=== PATIENT | female | born 1965 | race Caucasian/White ===

== ENCOUNTER → 2018-08-30 | Day surgery (SDC) | payer BC ==
[~2018-08-30] MED LIST: FENTANYL CITRATE/PF 100MCG/2 ML INJ ONE; GLUCAGON FOR INJ 1 MG VIAL ONE; HYOSCYAMINE SULFATE 0.5 MG/ML INJ ONE; MIDAZOLAM HCL 2 MG/2 ML VIAL ONE; PANTOPRAZOLE SO40 MG PO; PROPOFOL IV EMULSION 10 MG/ML 50 ML VIAL ONE; [UNRECOGNIZED DRUG - OTHER] PO
[2018-08-30 15:00] VITALS: BP 117/84
--- NOTE | 2018-08-30 15:12 | Operative Report ---
DATE OF PROCEDURE: August 30, 2018 REFERRING PHYSICIAN: Dr. Janna Tamayo PROCEDURES PERFORMED 1. Esophagogastroduodenoscopy with biopsies. 2. Colonoscopy with polypectomy and biopsies. INDICATIONS FOR EGD: Acid reflux and nausea. INDICATIONS FOR COLONOSCOPY: Colorectal cancer screening and history of diarrhea. MEDICATION: Patient was done under MAC. Please see anesthesiologist's note. PROCEDURE: With the patient in the left lateral decubitus position, the flexible fiberoptic Olympus gastroscope was introduced into the esophagus under direct visualization without any difficulty. There was some patchy erythema noted in the distal esophagus. The scope was then advanced with ease into the stomach traversing a small sliding hiatal hernia. Mucosa overlying the antrum and the body revealed some patchy erythema and mild to moderate edema, and biopsies were obtained and sent to stain for H. pylori. Approximately, 1.2 cm submucosal nodule was noted in the proximal antrum along with the posterior wall that was extensively biopsied. Pylorus was of normal contour and shape. It was intubated with ease. The scope was advanced all the way to the 2nd portion of the duodenum. Biopsies were obtained from the proximal 2nd portion and the duodenal bulb to rule out sprue. The scope was then withdrawn back into the stomach and retroflexed. The mucosa overlying the fundus and the cardia appeared to be within normal limits. The scope was then straightened out. The stomach was decompressed. The scope was subsequently withdrawn. Patient tolerated the procedure well. IMPRESSION 1. Mild distal esophagitis. 2. Small sliding hiatal hernia. 3. Gastritis, biopsied. Biopsies sent to stain for Helicobacter pylori. 4. Approximately, 1.2 cm submucosal nodule in proximal antrum, posterior wall, extensively biopsied. 5. Rule out sprue. PLAN: Follow up histology. Initiate Protonix 40 mg 1 p.o. q.a.m. a.c. Patient was then turned around. After adequate lubrication of the anal canal, a flexible fiberoptic Olympus colonoscope was inserted into the rectum with ease and advanced all the way to the cecum. Prep overall suboptimal to poor with moderate amount of retained fecal material. The ileocecal valve was intubated with ease. The scope was advanced into the terminal ileum. Biopsies were obtained. The scope was then withdrawn back into the colon. It was then withdrawn slowly. Whatever was visualized of the mucosa overlying the ascending and the transverse revealed some patchy areas of erythema. Mild inflammatory changes were noted in the areas visualized in the left colon. Random biopsies were obtained. Diverticular disease was noted in the distal descending and the sigmoid colon. One polyp was hot biopsied from the sigmoid colon. The scope was then retroflexed into the distal rectum. The area around the dentate line appeared to be within normal limits. The scope was then straightened out. It was subsequently withdrawn after securing an adequate stool specimen that was sent for the appropriate stool studies. Patient tolerated the procedure well. IMPRESSION 1. Poor prep. 2. Mild patchy left-sided colitis. 3. Diverticulosis. 4. Sigmoid colon polyp, hot biopsied. PLAN: Follow up histology. Follow up stool studies. Patient will need a repeat colonoscopy after a better prep. Job#: [id number] RI cc: JANNA TAMAYO MD
[2018-08-30 15:16] LABS: WBC,FECAL (FECAL LACTOFERRIN) POSITIVE (NEGATIVE)
[2018-08-31 14:59] LABS: C DIFFICILE TOXIN A&B AMP PROB NEGATIVE (NEGATIVE)
== END | disposition home or self-care (01) ==
LOC: OR 09:16
PROVIDERS: ATTEND Internal Medicine Gastroenterology
DX: Z12.11 Encounter for screening for malignant neoplasm of colon (principal); K63.5 Polyp of colon; K29.50 Unspecified chronic gastritis without bleeding; K51.50 Left sided colitis without complications; K29.80 Duodenitis without bleeding; K21.9 Gastro-esophageal reflux disease without esophagitis; K59.09 Other constipation; B96.81 Helicobacter pylori [H. pylori] as the cause of diseases classified elsewhere; K63.89 Other specified diseases of intestine; K20.9 Esophagitis, unspecified; K44.9 Diaphragmatic hernia without obstruction or gangrene; K31.89 Other diseases of stomach and duodenum; Z90.49 Acquired absence of other specified parts of digestive tract; K57.30 Diverticulosis of large intestine without perforation or abscess without bleeding; G70.00 Myasthenia gravis without (acute) exacerbation; I45.10 Unspecified right bundle-branch block; Z01.810 Encounter for preprocedural cardiovascular examination; Z97.5 Presence of (intrauterine) contraceptive device
CPT/HCPCS: 43239; 45380; 45384; 83630; 83993; 87045; 87177; 87328; 87493; 93005; J1610; J1980; J2250; 45378

== ENCOUNTER → 2018-09-18 | Outpatient (CLI) | payer BC, OTHER ==
[~2018-09-18] MED LIST changes: +DIATRIZOATE MEGL/DIATRIZOA SOD 30 ML BTL PO ONE; -FENTANYL CITRATE/PF 100MCG/2 ML INJ ONE; -GLUCAGON FOR INJ 1 MG VIAL ONE; -HYOSCYAMINE SULFATE 0.5 MG/ML INJ ONE; +IOPAMIDOL 370 MG/ML 200 ML INFUS..BTL INJ ONE; -MIDAZOLAM HCL 2 MG/2 ML VIAL ONE; -PROPOFOL IV EMULSION 10 MG/ML 50 ML VIAL ONE; +SODIUM CHLORIDE 0.9% 50ML 50 ML ONE
--- NOTE | 2018-09-18 17:16 | Diagnostic Imaging Report ---
EXAM: CT Abdomen and Pelvis WITH contrast INDICATION: Constipation/diarrhea COMPARISON: None. TECHNIQUE: Abdomen and Pelvis was scanned utilizing a multidetector helical scanner after administration of IV contrast. Coronal and sagittal reformations were obtained. IV CONTRAST: 100 mL Isovue 320 COMPLICATIONS: None RADIATION DOSE: Total DLP:239 mGy*cm Estimated effective dose: (DLP x 0.015 x size factor) mSv CTDIvol has been reviewed. It is below the limits set by the Radiation Protocol Committee (RPC). Appropriate CT dose reduction techniques were utilized. FINDINGS: Abdomen: Lung Bases: Atelectasis. Breast implants partially visualized. Solid Organs: Focal fat along falciform ligament. Cholecystectomy clips. Liver, adrenals, kidneys, spleen, and pancreas otherwise unremarkable. Upper GI Tract: Decompressed stomach limits evaluation. No small bowel obstructive changes. Vascularity: No aortic aneurysm. Lymph Nodes: No suspicious adenopathy. Other: None. Pelvis: Bladder: Unremarkable. Other: Uterus/adnexa suboptimally evaluated with CT. IUD present. There is a lobular 68 x 53 mm soft tissue mass in the right pelvis with mild mass effect on the posterior lateral aspect of the urinary bladder. Colon: No acute colonic findings. Bones: No acute findings. IMPRESSION: 1. 68 x 53 mm soft tissue mass right pelvis, etiology uncertain. Ovarian malignancy not excluded. Gynecologic consultation/follow-up recommended. Pelvic ultrasound and/or pelvic MRI could be obtained for further evaluation. Signed by: Dr. Franki David MD on 09/18/2018 5:12 PM
== END ==
LOC: CT 14:47
PROVIDERS: ATTEND Internal Medicine Gastroenterology
DX: K59.09 Other constipation (principal); K58.0 Irritable bowel syndrome with diarrhea
CPT/HCPCS: 74177; Q9967

== ENCOUNTER 2019-01-28 17:03 | Emergency (ER) | payer BC, OTHER ==
[~2019-01-28] VITALS: Ht 152.4 cm; Wt 59.6 kg
[~2019-01-28 17:03] MED LIST changes: -DIATRIZOATE MEGL/DIATRIZOA SOD 30 ML BTL PO ONE; -IOPAMIDOL 370 MG/ML 200 ML INFUS..BTL INJ ONE; -SODIUM CHLORIDE 0.9% 50ML 50 ML ONE
[2019-01-28] MEDS ORDERED: SODIUM CHLORIDE 0.9% 1000ML 1,000 ML IV STA (17:31)
--- OUTSIDE RECORDS SUMMARY | 2019-01-28 17:38 | XMS REPORT ---
Author Author [facility] Address Unknown Phone Unavailable Care Team Providers Care Liner Machine Operator Name Role Phone MAYURI LYNCH Unavailable Unavailable Problems This patient has no known problems. Allergies, Adverse Reactions, Alerts This patient has no known allergies or adverse reactions. Medications This patient has no known medications. Results Test Description Test Time Test Comments Text Results Atomic Results Result Comments CT ABDOMEN/PELVIS W 2018-09-18 17:09:00 [facility] [address] [address] Patient Name: RADHA LING MR #: [id number] : 1965 Age/Sex: 53/F Req #: [id number] Adm Physician: Ordered by: MAYURI LYNCH MD Report #: [id number] Location: CT Room/Bed: Procedure: [id number] CT/CT ABDOMEN/PELVIS W Exam Date: 09/18/18 Exam Time: 1619 REPORT STATUS: Signed EXAM: CT Abdomen and Pelvis WITH contrast INDICATION: Constipation/diarrhea COMPARISON: None. TECHNIQUE: Abdomen and Pelvis was scanned utilizing a multidetector helical scanner after administration of IV contrast. Coronal and sagittal reformations were obtained. IV CONTRAST: 100 mL Isovue 320 COMPLICATIONS: None RADIATION DOSE: Total DLP:239 mGy*cm Estimated effective dose: (DLP x 0.015 x size factor) mSv CTDIvol has been reviewed. It is below the limits set by the Radiation Protocol Committee (RPC). Appropriate CT dose reduction techniques were utilized. FINDINGS: Abdomen: Lung Bases: Atelectasis. Breast implants partially visualized. Solid Organs: Focal fat along falciform ligament. Cholecystectomy clips. Liver, adrenals, kidneys, spleen, and pancreas otherwise unremarkable. Upper GI Tract: Decompressed stomach limits evaluation. No small bowel obstructive changes. Vascularity: No aortic aneurysm. Lymph Nodes: No suspicious adenopathy. Other: None. Pelvis: Bladder: Unremarkable. Other: Uterus/adnexa suboptimally evaluated with CT. IUD present. There is a lobular 68 x 53 mm soft tissue mass in the right pelvis with mild mass effect on the posterior lateral aspect of the urinary bladder. Colon: No acute colonic findings. Bones: No acute findings. IMPRESSION: 1. 68 x 53 mm soft tissue mass right pelvis, etiology uncertain. Ovarian malignancy not excluded. Gynecologic consultation/follow-up recommended. Pelvic ultrasound and/or pelvic MRI could be obtained for further evaluation. Signed by: Dr. Franki David MD on 09/18/2018 5:12 PM Dictated By: FRANKI DAVID MD 11 Transcribed By: DANNIE on 09/18/181711 COPY TO: MAYURI LYNCH MD
--- OUTSIDE RECORDS SUMMARY | 2019-01-28 17:38 | XMS REPORT | Summary of Care ---
Author Author [facility] Outpatient Imaging [facility] Address Unknown Phone Unavailable Encounter HQ Encntr_alichidi(FIN) [id number] Date(s): 09/26/18 - 09/26/18 [facility] Outpatient Imaging [facility] [address] [facility], [address] [place] [phone] Discharge Disposition: Home or Self Care Attending Physician: Liban Vaca MD Referring Physician: Liban Vaca MD Vital Signs No data available for this section Problem List No data available for this section Allergies, Adverse Reactions, Alerts No data available for this section Medications No data available for this section Results No data available for this section Immunizations No data available for this section Procedures No data available for this section Social History No data available for this section Assessment and Plan No data available for this section
--- OUTSIDE RECORDS SUMMARY | 2019-01-28 17:38 | XMS REPORT | Continuity of Care Document ---
Author Author [employer] Organization Interface Address Unknown Phone Unavailable Problems Problem Status Onset Date Classification Date Reported Comments Source R19.00 - INTRA-ABD AND PELVIC SWELLING, Active 09/25/2018 [facility] Medications Medication Details Route Status Patient Instructions Ordering Provider Order Date Source Allergies, Adverse Reactions, Alerts Substance Category Reaction Severity Reaction type Status Date Reported Comments Source Immunizations Immunization Date Given Site Status Last Updated Comments Source Results Order Name Results Value Reference Range Date Interpretation Comments Source Pelvis w Pelvis Transvaginal US Pelvis w Pelvis Transvaginal US EXAM: US PELVIS TRANSABDOMINAL EXAM: US PELVIS TRANSVAGINAL DATE: 09/26/2018 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 Outside imaging study which reported a right-sided uterine mass. ADDITIONAL INFORMATION: LMP: No menstrual cycles since July 2013 secondary to IUD, which was removed yesterday. COMPARISON: None within the [employer] system under this name and medical record number.. TECHNIQUE: Multiplanar grayscale and color Doppler ultrasound images of the pelvis were obtained transabdominally through a distended urinary bladder followed by transvaginal examination postvoid. FINDINGS: Uterus: Orientation: Anteverted Size: 7.1 x 3.5 x 4.3 cm Masses: Multiple heterogeneous echogenicity, predominantly hypoechoic masses compatible with leiomyomas are visualized Leiomyoma 1: Mid posterior uterine body, intramural, 1.9 x 1.2 x 1.9 cm Leiomyoma 2: Mid posterior uterine body, intramural, 1.4 x 1.1 x 1.4 cm Leiomyoma 3: Right uterine body, subserosal, 5.1 x 4.1 x 4.6 cm Leiomyoma 4: Posterior uterine fundus, subserosal, calcified, 2.0 x 1.2 x 2.5 cm . Cervix: Benign nabothian cysts Endometrium: 2.4 mm. No focal abnormalities or abnormal endometrial vascularity are seen. Right ovary: Size: 2.5 x 1.1 x 2.2 cm Cysts: None. Masses: None. Vascularity: Normal. Left ovary: Size: 2.3 x 1.0 x 1.6 cm Cysts: None. Masses: None. Vascularity: Normal. Adnexa: No adnexal masses or fluid collections are seen. Free fluid: None. Other findings: None. IMPRESSION: 1. Multiple leiomyomas of the uterus, as described above. No submucosal leiomyomas are demonstrated. 2. No abnormalities of the uterine endometrium are detected. 3. No adnexal/ovarian pathology is seen. 09/26/2018 - - Read by: Db Martinez MD Dictated Date/time: 09/26/18 15:19 Electronically Signed by: Db Martinez MD 09/26/18 15:24 FINAL REPORT [facility] Vital Signs Vital Sign Value Date Comments Source Encounters Location Location Details Encounter Type Encounter Number Reason For Visit Attending Provider ADM Date DC Date Status Source [facility] [id number] Liban Vaca 09/26/2018 [facility] Procedure Code Date Perfomer Comments Source
--- OUTSIDE RECORDS SUMMARY | 2019-01-28 17:38 | XMS REPORT | Encounter Summary ---
Author Organization Unknown Address [address] [place] [address] Phone [phone] Care Team Providers Care Security Attendant Name Role Phone [employer] [facility] Ayou[facility] 2 [phone] Finesse Quinn MD 107 [phone] Jose M Barker 126 [phone] Reason for Visit headaches Instructions 1. Body mass index 25-29 - overweight learning about healthy weight 2. Headache go to emergency room Discussion Note: None recorded. Plan of Care Patient Instructions advised attend er stat Reminders Provider Appointments None recorded. Lab None recorded. Referral None recorded. Procedures None recorded. Surgeries None recorded. Imaging None recorded. Medications No Medications Reported Medications Administered None recorded. Vitals Height Weight BMI Blood Pressure 5 ft 131.6 lbs 25.7 kg/m2 130/90 mm[Hg] Lab Results None recorded. Allergies Code Code System Name Reaction Severity Status Onset NKDA Problems Name Status Onset Date Source Hypercholesterolemia Active 02/22/2017 Body Mass Index 25-29 - Overweight Active 02/22/2017 Right Upper Quadrant Pain Active 02/22/2017 Mixed Hyperlipidemia Active 03/08/2017 Cholelithiasis without Obstruction Active 03/08/2017 Myasthenia Gravis Active Procedures Date Name Performed by 08/21/2016 Other Information not available 08/21/1999 Removal of Thymus Gland Information not available 08/21/1966 Removal of Tonsils Information not available Breast Surgery Information not available Vaccine List Vaccine Type MMR 04/16/1996 Tdap 08/07/20180.5 mL Social History Smoking Status Never Smoker Past Encounters 01/28/2019 Body Mass Index 25-29 - Overweight; Headache Solitario Segovia MD: [address] [place] [address], Ph. History of Present Illness Note:30 hour h/o sudden onset headache,currently 8/10 ,assoc nausea ,mild neck pain,body aches no vomiting.phonophobia/photophobia/prior hx,minimal relief ibuprofen Review of Systems:ROS as noted in the HPI Review of Systems None recorded. Physical Exam General Adult Exam (Female) Reported By: Patient Constitutional: General Appearance: healthy-appearing, well-nourished, well-developed. Level of Distress: NAD. Ambulation: ambulating normally Psychiatric: Insight: good judgement. Mental Status: active and alert, normal mood, normal affect. Orientation: to time, to place, to person. Memory: recent memory normal, remote memory normal Head: Head: normocephalic, atraumatic Eyes: Lids and Conjunctivae: non-injected, no discharge, no pallor. Pupils: PERRLA. Corneas: grossly intact. Fundoscopic: grossly normal except where noted, normal optic discs, normal vessels, no exudates, no hemorrhages. EOM: EOMI. Lens: clear. Sclerae: non-icteric. Vision: peripheral vision grossly intact, acuity grossly intact ENMT: Ears: no lesions on external ear, EACs clear, TMs clear, TM mobility normal. Hearing: no hearing loss. Nose: no lesions on external nose, nares patent, no septal deviation, nasal passages clear, no sinus tenderness, no nasal discharge. Lips, Teeth, and Gums: no mouth or lip ulcers, no bleeding gums, normal dentition. Oropharynx: moist mucous membranes, no erythema, no exudates, tonsils not enlarged Neck: Neck: supple, trachea midline, no masses, FROM; slight neck stiffness. Lymph Nodes: no cervical LAD, no supraclavicular LAD, no axillary LAD, no inguinal LAD. Thyroid: no enlargement, non-tender, no nodules Lungs: Respiratory effort: no dyspnea. Percussion: no dullness, flatness, or hyperresonance. Auscultation: breath sounds normal, good air movement, CTA except as noted, no wheezing, no rales/crackles, no rhonchi Cardiovascular: Apical Impulse: not displaced. Heart Auscultation: RRR, normal S1, normal S2, no murmurs, no rubs, no gallops. Neck vessels: no carotid bruits. Pulses including femoral / pedal: normal throughout Breast: Breast: normal appearance, no masses, no abnormal secretions Abdomen: Bowel Sounds: normal. Inspection and Palpation: soft, non-distended, no tenderness, no guarding, no rebound tenderness, no masses, no CVA tenderness. Liver: non-tender, no hepatomegaly. Spleen: non-tender, no splenomegaly. Hernia: none palpable Female : External genitalia: normal, no lesions, no rash. Vagina: moist mucosa, no discharge. Cervix: no discharge, no cervical motion tenderness, no inflammation. Uterus: midline, smooth, normal size, non-tender. Adnexae: size WNL, no adnexal mass, no adnexal tenderness. Bladder and Urethra: normal bladder and urethra (except where noted) Rectal: Anus, Perineum, Rectum: normal tone, no hemorrhoids, no fissures, no masses, stool heme negative Musculoskeletal:: Motor Strength and Tone: normal motor strength, normal tone. Joints, Bones, and Muscles: normal movement of all extremities, no bony abnormalities, no contractures, no malalignment, no tenderness. Extremities: no cyanosis, no edema, no varicosities, no palpable cord Neurologic: Gait and Station: normal gait, normal station. Cranial Nerves: grossly intact. Sensation: grossly intact, monofilament test intact. Reflexes: DTRs 2+ bilaterally throughout. Coordination and Cerebellum: [id number] intact, no tremor Skin: Inspection and palpation: no rash, no lesions, no ulcer, no abnormal nevi, no induration, no nodules, good turgor, no jaundice. Nails: normal Back: Thoracolumbar Appearance: normal curvature
[2019-01-28] MEDS ORDERED: DIPHENHYDRAMINE HCL INJ 50 MG/ML VIAL IV ONE (17:45)
[2019-01-28] MEDS ORDERED: METOCLOPRAMIDE HCL 10 MG/2ML VIAL IV ONE (17:45)
[2019-01-28 18:02] LABS: BASOPHILS % 0.3 % (0.0-1.0); EOSINOPHILS % 0.1 % (0.0-6.0); HEMATOCRIT 41.8 % (34.2-44.1); HEMOGLOBIN 13.8 g/dL (12.0-16.0); LYMPHOCYTES # (AUTO) 1.6 (1.0-3.2); LYMPHOCYTES % 21.9 % (18.0-39.1); MEAN CORPUSCULAR HEMOGLOBIN 29.6 pg (28-32); MEAN CORPUSCULAR VOLUME 89.7 fL (81-99); MONOCYTES # (AUTO) 0.4 (0.2-0.8); MONOCYTES % 5.8 % (4.4-11.3); NEUTROPHILS # (AUTO) 5.2 (2.1-6.9); NEUTROPHILS % 71.6 % (38.7-80.0); PLATELET COUNT 250 x10e3/uL (140-360); RED BLOOD COUNT 4.66 x10e6/uL (3.6-5.1); RED CELL DISTRIBUTION WIDTH 12.7 % (11.7-14.4)
[2019-01-28 18:21] LABS: ALANINE AMINOTRANSFERASE 17 IU/L (0-55); ALBUMIN 4.1 g/dL (3.5-5.0); ALBUMIN/GLOBULIN RATIO 1.2 (0.8-2.0); ALKALINE PHOSPHATASE 60 IU/L (40-150); ANION GAP 12.8 mmol/L (8-16); BLOOD UREA NITROGEN 12 mg/dL (7-26); BUN/CREATININE RATIO 15 (6-25); CALCIUM 10.1 mg/dL (8.4-10.2); CARBON DIOXIDE 26 mmol/L (22-29); CHLORIDE 103 mmol/L (98-107); CREATININE, SERUM 0.79 mg/dL (0.57-1.11); EST GLOMERULAR FILTRATION RATE > 60 ML/MIN (60-); GLUCOSE 87 mg/dL (74-118); POTASSIUM 3.8 mmol/L (3.5-5.1); SODIUM 138 mmol/L (136-145)
[2019-01-28 18:39] LABS: BILIRUBIN,URINE NEGATIVE (NEGATIVE); CLARITY,URINE CLEAR (CLEAR); COLOR,URINE YELLOW (YELLOW); KETONES,URINE 1+ (NEGATIVE); LEUKOCYTE ESTERASE ,URINE NEGATIVE (NEGATIVE); NITRITE,URINE NEGATIVE (NEGATIVE); PROTEIN,URINE DIPSTICK NEGATIVE (NEGATIVE); URINE UROBILINOGEN 0.2 mg/dL (0.2 - 1)
[2019-01-28 19:07] LABS: BACTERIA,URINE MODERATE /HPF; EPITHELIAL CELLS,URINE MANY /LPF; WBC,URINE (MAN) 0-5 /HPF (0-5)
== END 2019-01-28 20:42 | disposition home or self-care (01) ==
LOC: ER 17:03
DX: G44.219 Episodic tension-type headache, not intractable (principal); G70.00 Myasthenia gravis without (acute) exacerbation; E78.5 Hyperlipidemia, unspecified; K21.9 Gastro-esophageal reflux disease without esophagitis
CPT/HCPCS: 36415; 80053; 81001; 85025; 99284; J1200; J2765; J7030